=== PATIENT | female | born 1975 | race African-American/Black ===

== ENCOUNTER 2021-06-16 16:23 | Emergency (ER) | payer MEDICARE, OTHER ==
[~2021-06-16] VITALS: Ht 157.5 cm; Wt 54.0 kg
[2021-06-16] MEDS ORDERED: SODIUM CHLORIDE 0.9% IV ONE (17:15)
[2021-06-16] MEDS ORDERED: DESMOPRESSIN ACETATE IV ONE (17:15)
[2021-06-16] MEDS ORDERED: THROMBIN (BOVINE) 5000 UNITS/VIAL TOP ONE (17:15)
[2021-06-16 18:18] LABS: BASOPHILS % 0.9 % (0.0-2.0); EOSINOPHILS % 1.4 % (0.0-5.0); HEMATOCRIT. 34.7 % (42.0-52.0); HEMOGLOBIN. 11.7 g/dL (14.0-18.0); LYMPHOCYTES % 9.8 % (20.0-50.0); MEAN CORPUSCULAR HEMOGLOBIN 34.2 pg (28.0-32.0); MEAN CORPUSCULAR VOLUME 101.4 fL (80.0-94.0); MEAN PLATELET VOLUME 7.5 fl (7.4-10.4); MONOCYTES % 6.7 % (2.0-8.0); NEUTROPHILS % 81.2 % (40.0-76.0); PLATELET 279 x1000/uL (130-400); RED BLOOD CELL COUNT 3.42 mill/uL (4.7-6.1); RED CELL DISTRIBUTION WIDTH 18.3 % (11.6-14.6)
[2021-06-16 18:26] LABS: CHLORIDE 100 mEq/L (98-107)
[2021-06-16 19:40] VITALS: BP 127/97
== END 2021-06-16 19:50 | disposition left against medical advice (07) ==
LOC: ER 16:23 → EDSEX 16:23 → EDBEDREQTM 18:31 → EDBEDREQ 18:31 → ENRESERV 19:28 → CANRESERV 19:28 → ER 19:50 → CANBEDREQ 22:47
DX: T82.590A Other mechanical complication of surgically created arteriovenous fistula, initial encounter (principal); I10 Essential (primary) hypertension; F12.10 Cannabis abuse, uncomplicated; Z98.890 Other specified postprocedural states; X58.XXXA Exposure to other specified factors, initial encounter; Y93.89 Activity, other specified; Y92.89 Other specified places as the place of occurrence of the external cause; Y99.8 Other external cause status
CPT/HCPCS: 12001; 36415; 80053; 85025; 99291; J2597; J3490